=== PATIENT | female | born 1985 | race African-American/Black ===

== ENCOUNTER 2020-12-25 21:37 | Emergency (ER) | payer OTHER, MEDICAID ==
[~2020-12-25] VITALS: Ht 154.9 cm; Wt 95.3 kg
[~2020-12-25 21:37] MED LIST: PHEN100C PO
[2020-12-26 01:56] VITALS: BP 125/77
== END 2020-12-26 01:57 | disposition home or self-care (01) ==
LOC: ER 21:37 → EDBD 21:37 → ER 12-26 01:57
DX: R56.9 Unspecified convulsions (principal); R51.9 Headache, unspecified; F17.210 Nicotine dependence, cigarettes, uncomplicated